=== PATIENT | female | born 1965 | race African-American/Black ===

== ENCOUNTER 2017-10-01 03:02 | Emergency (ER) | payer OTHER ==
[2017-10-01] MEDS: LORAZEPAM 2 MG INJ IV ×2 (05:31→06:21)
[2017-10-01] MEDS: LEVETIRACETAM 500 MG (PMX) 100 ML IVPB ×2 (05:31→06:49)
[2017-10-01] MEDS: HYDROCODONE/APAP (10/325) TAB PO (06:51)
== END 2017-10-01 10:03 | disposition home or self-care (01) ==
LOC: E/R 03:02
DX: G40.909 Epilepsy, unspecified, not intractable, without status epilepticus (principal); R40.2142 Coma scale, eyes open, spontaneous, at arrival to emergency department; R40.2252 Coma scale, best verbal response, oriented, at arrival to emergency department; R40.2362 Coma scale, best motor response, obeys commands, at arrival to emergency department
CPT/HCPCS: 96374; 96375; 96376; 99284-25

== ENCOUNTER 2017-12-10 18:01 | Inpatient (IN) | payer OTHER ==
[2017-12-10 19:05] LABS: ADD MAN DIFF? NO
[2017-12-10 19:11] LABS: WHITE BLOOD COUNT 10.5 10^3/ul (4.8-10.8)
[2017-12-10 19:11] LABS: BASOPHILS % 0.4 % (0.0-2.0); EOSINOPHILS # 0.4 10^3/ul (0.0-0.5); EOSINOPHILS % 3.4 % (0.0-7.0); HEMATOCRIT 37.1 % (37.0-47.0); HEMOGLOBIN 11.9 g/dl (12.0-16.0); LYMPHOCYTES # 4.4 10^3/ul (0.8-2.9); LYMPHOCYTES % 42.5 % (15.0-51.0); MEAN CORPUSCULAR HEMOGLOBIN 27.7 pg (29.0-33.0); MEAN CORPUSCULAR HGB CONC 32.1 g/dl (32.0-37.0); MEAN CORPUSCULAR VOLUME 86.5 fl (82.0-101.0); MEAN PLATELET VOLUME 11.8 fl (7.4-10.4); NEUTROPHIL # 4.5 10^3/ul (1.6-7.5); NEUTROPHILS % 43.4 % (39.0-77.0); PLATELET COUNT 282 10^3/UL (140-415); RED BLOOD COUNT 4.29 10^6/ul (4.20-5.40); RED CELL DISTRIBUTION WIDTH 14.6 % (11.5-14.5)
[2017-12-10 19:30] LABS: INR 0.87; PROTIME 11.9 Sec (11.9-14.9); PT RATIO 0.9
[2017-12-10 19:31] LABS: PARTIAL THROMBOPLASTIN TIME 27.7 Sec (25.0-35.0)
[2017-12-10] MEDS ORDERED: LORAZEPAM 2 MG INJ (19:31)
[2017-12-10 19:35] LABS: ALANINE AMINOTRANSFERASE 28 IU/L (13-69); ALBUMIN 4.1 g/dl (3.3-4.9); ALBUMIN/GLOBULIN RATIO 1.17; ALKALINE PHOSPHATASE 105 IU/L (42-121); ANION GAP 16 (8-16); ASPARTATE AMINO TRANSFERASE 22 IU/L (15-46); BLOOD UREA NITROGEN 10 mg/dl (7-20); CARBON DIOXIDE 27 mmol/L (21-31); CHLORIDE 106 mmol/L (97-110); CREATININE 0.93 mg/dl (0.44-1.00); GLUCOSE 104 mg/dl (70-220); POTASSIUM 3.6 mmol/L (3.5-5.1); SODIUM 145 mmol/L (135-144); TOTAL PROTEIN 7.6 g/dl (6.1-8.1)
[2017-12-10 19:44] LABS: ETHANOL < 10.0 mg/dl; PHENYTOIN (DILANTIN) < 3.0 ug/ml (10.0-20.0)
[2017-12-10] MEDS: LORAZEPAM 2 MG INJ IV (19:48)
[2017-12-10] MEDS: LEVETIRACETAM 1000 MG (PMX) 100 ML IVPB (19:48)
[2017-12-10 19:49] LABS: TROPONIN-I < 0.012 ng/ml (0.00-0.12)
[2017-12-10] MEDS: SOD CHLORIDE 0.9% 1,000 ML IV (19:49)
[2017-12-10] MEDS ORDERED: ONDANSETRON 4 MG INJ IV (22:30)
[2017-12-10] MEDS ORDERED: ACETAMINOPHEN 325 MG TAB PO (22:30)
[2017-12-11] MEDS: hydrALAzine 20 MG INJ IV (00:35)
[2017-12-11] MEDS: LORAZEPAM 2 MG INJ IV ×4 (00:36→20:22)
[2017-12-11] MEDS ORDERED: ONDANSETRON 4 MG INJ IV (01:30)
[2017-12-11] MEDS ORDERED: hydrALAzine 20 MG INJ IV (01:30)
[2017-12-11] MEDS ORDERED: MAGNESIUM HYDROXIDE 30ML CUP PO (01:30)
[2017-12-11] MEDS ORDERED: NACL 0.9% 3 ML SYG IV (01:30)
[2017-12-11] MEDS ORDERED: DOCUSATE SODIUM 100 MG CAP PO (01:30)
[2017-12-11] MEDS ORDERED: NA PHOSPHATE/BIPHOS 133 ML ENEMA PR (01:30)
[2017-12-11] MEDS ORDERED: HYDROCODONE/APAP (5/325) TAB PO (01:30)
[2017-12-11] MEDS ORDERED: NITROGLYCERIN (SL) 0.4 MG TAB SL (01:30)
[2017-12-11] MEDS: morphine 2 MG INJ IV (01:59)
[2017-12-11] MEDS: SOD CHLORIDE 0.45% 1,000 ML IV ×2 (02:00→14:51)
[2017-12-11 08:16] LABS: FREE T4 (FREE THYROXINE) 0.86 ng/dl (0.64-1.79)
[2017-12-11] MEDS: LEVETIRACETAM 1000 MG (PMX) 100 ML IVPB ×2 (09:17→20:22)
[2017-12-11] MEDS: HEPARIN 5,000 UNIT/0.5 ML VIAL SC ×2 (09:18→20:37)
[2017-12-12] MEDS: LORAZEPAM 2 MG INJ IV (01:03)
[2017-12-12] MEDS: SOD CHLORIDE 0.45% 1,000 ML IV ×2 (04:17→17:22)
[2017-12-12 07:36] LABS: ADD MAN DIFF? NO
[2017-12-12 07:39] LABS: BASOPHILS % 0.4 % (0.0-2.0); EOSINOPHILS # 0.1 10^3/ul (0.0-0.5); EOSINOPHILS % 0.5 % (0.0-7.0); HEMATOCRIT 37.3 % (37.0-47.0); HEMOGLOBIN 12.1 g/dl (12.0-16.0); LYMPHOCYTES % 26.8 % (15.0-51.0); MEAN CORPUSCULAR HEMOGLOBIN 27.5 pg (29.0-33.0); MEAN CORPUSCULAR HGB CONC 32.4 g/dl (32.0-37.0); MEAN CORPUSCULAR VOLUME 84.8 fl (82.0-101.0); MONOCYTE # 1.2 10^3/ul (0.3-0.9); MONOCYTES % 10.5 % (0.0-11.0); NEUTROPHIL # 6.8 10^3/ul (1.6-7.5); NEUTROPHILS % 61.5 % (39.0-77.0); PLATELET COUNT 280 10^3/UL (140-415); RED CELL DISTRIBUTION WIDTH 14.8 % (11.5-14.5)
[2017-12-12 08:01] LABS: ANION GAP 14 (8-16); BLOOD UREA NITROGEN 10 mg/dl (7-20); CALCIUM 9.2 mg/dl (8.4-10.2); CARBON DIOXIDE 30 mmol/L (21-31); CHLORIDE 101 mmol/L (97-110); CHOL/HDL RATIO 3.1 RATIO; CHOLESTEROL 175 mg/dl (100-200); CREATININE 0.86 mg/dl (0.44-1.00); GLUCOSE 119 mg/dl (70-220); HDL CHOLESTEROL 55 mg/dl (37-92); LDL CHOLESTEROL,CALCULATED 97 mg/dl; MAGNESIUM 1.9 mg/dl (1.7-2.5); PHOSPHORUS 2.9 mg/dl (2.5-4.9); SODIUM 141 mmol/L (135-144); TRIGLYCERIDES 117 mg/dl (0-149)
[2017-12-12 08:01] LABS: HEMOGLOBIN A1C 5.6 % (0-5.9)
[2017-12-12] MEDS: LEVETIRACETAM 1000 MG (PMX) 100 ML IVPB ×2 (08:21→20:11)
[2017-12-12 08:25] LABS: THYROID STIMULATING HORMONE 0.733 MIU/L (0.465-4.680)
[2017-12-12] MEDS: HEPARIN 5,000 UNIT/0.5 ML VIAL SC ×2 (08:38→20:18)
[2017-12-12] MEDS: AMLODIPINE 2.5 MG TAB PO (16:27)
[2017-12-13] MEDS: OXCARBAZEPINE 300 MG TAB PO ×3 (00:39→20:24)
[2017-12-13] MEDS: SOD CHLORIDE 0.45% 1,000 ML IV ×2 (06:47→20:02)
[2017-12-13] MEDS: AMLODIPINE 2.5 MG TAB PO (08:38)
[2017-12-13] MEDS: HEPARIN 5,000 UNIT/0.5 ML VIAL SC ×2 (08:41→20:26)
[2017-12-13] MEDS: LEVETIRACETAM IV 1,500 MG in SOD CHLORIDE 0.9% 100 ML IV ×2 (08:41→20:24)
[2017-12-13 09:33] LABS: ADD MAN DIFF? NO
[2017-12-13 09:39] LABS: WHITE BLOOD COUNT 10.8 10^3/ul (4.8-10.8)
[2017-12-13 09:39] LABS: BASOPHIL # 0.1 10^3/ul (0.0-0.1); BASOPHILS % 0.5 % (0.0-2.0); EOSINOPHILS # 0.1 10^3/ul (0.0-0.5); EOSINOPHILS % 1.3 % (0.0-7.0); HEMATOCRIT 41.1 % (37.0-47.0); HEMOGLOBIN 13.2 g/dl (12.0-16.0); LYMPHOCYTES # 3.2 10^3/ul (0.8-2.9); LYMPHOCYTES % 29.3 % (15.0-51.0); MEAN CORPUSCULAR HEMOGLOBIN 27.2 pg (29.0-33.0); MEAN CORPUSCULAR HGB CONC 32.1 g/dl (32.0-37.0); MEAN CORPUSCULAR VOLUME 84.7 fl (82.0-101.0); MEAN PLATELET VOLUME 11.1 fl (7.4-10.4); MONOCYTE # 1.1 10^3/ul (0.3-0.9); MONOCYTES % 10.5 % (0.0-11.0); NEUTROPHIL # 6.3 10^3/ul (1.6-7.5); PLATELET COUNT 294 10^3/UL (140-415); RED BLOOD COUNT 4.85 10^6/ul (4.20-5.40); RED CELL DISTRIBUTION WIDTH 14.6 % (11.5-14.5)
[2017-12-13 10:06] LABS: ANION GAP 16 (8-16); BLOOD UREA NITROGEN 9 mg/dl (7-20); CALCIUM 9.2 mg/dl (8.4-10.2); CARBON DIOXIDE 28 mmol/L (21-31); CHLORIDE 103 mmol/L (97-110); CREATININE 0.91 mg/dl (0.44-1.00); GLUCOSE 109 mg/dl (70-220); POTASSIUM 3.5 mmol/L (3.5-5.1); SODIUM 143 mmol/L (135-144)
[2017-12-14] MEDS: SOD CHLORIDE 0.45% 1,000 ML IV ×2 (01:15→09:22)
[2017-12-14 06:48] LABS: ADD MAN DIFF? NO
[2017-12-14 06:57] LABS: BASOPHILS % 0.4 % (0.0-2.0); EOSINOPHILS # 0.3 10^3/ul (0.0-0.5); EOSINOPHILS % 2.6 % (0.0-7.0); HEMATOCRIT 35.3 % (37.0-47.0); HEMOGLOBIN 11.4 g/dl (12.0-16.0); LYMPHOCYTES # 3.8 10^3/ul (0.8-2.9); LYMPHOCYTES % 34.6 % (15.0-51.0); MEAN CORPUSCULAR HEMOGLOBIN 27.4 pg (29.0-33.0); MEAN CORPUSCULAR HGB CONC 32.3 g/dl (32.0-37.0); MEAN CORPUSCULAR VOLUME 84.9 fl (82.0-101.0); MONOCYTE # 1.1 10^3/ul (0.3-0.9); MONOCYTES % 10.1 % (0.0-11.0); NEUTROPHIL # 5.7 10^3/ul (1.6-7.5); NEUTROPHILS % 51.8 % (39.0-77.0); PLATELET COUNT 258 10^3/UL (140-415); RED BLOOD COUNT 4.16 10^6/ul (4.20-5.40); RED CELL DISTRIBUTION WIDTH 14.6 % (11.5-14.5)
[2017-12-14 07:23] LABS: ANION GAP 14 (8-16); BLOOD UREA NITROGEN 11 mg/dl (7-20); CARBON DIOXIDE 30 mmol/L (21-31); CHLORIDE 105 mmol/L (97-110); GLUCOSE 99 mg/dl (70-220); POTASSIUM 4.1 mmol/L (3.5-5.1); SODIUM 145 mmol/L (135-144)
[2017-12-14] MEDS: OXCARBAZEPINE 300 MG TAB PO ×2 (09:16→20:47)
[2017-12-14] MEDS: AMLODIPINE 2.5 MG TAB PO (09:16)
[2017-12-14] MEDS: HEPARIN 5,000 UNIT/0.5 ML VIAL SC ×2 (09:23→20:49)
[2017-12-14] MEDS: LEVETIRACETAM IV 1,500 MG in SOD CHLORIDE 0.9% 100 ML IV ×2 (09:30→20:48)
[2017-12-14] MEDS: ALBUTEROL/IPRATROPIUM (NEB) 3 ML AMP HHN (17:04)
[2017-12-15] MEDS: ACETAMINOPHEN 325 MG TAB PO (05:52)
[2017-12-15 07:15] LABS: ADD MAN DIFF? NO
[2017-12-15 07:24] LABS: WHITE BLOOD COUNT 11.1 10^3/ul (4.8-10.8)
[2017-12-15 07:24] LABS: BASOPHIL # 0.1 10^3/ul (0.0-0.1); BASOPHILS % 0.5 % (0.0-2.0); EOSINOPHILS # 0.4 10^3/ul (0.0-0.5); EOSINOPHILS % 3.7 % (0.0-7.0); HEMATOCRIT 35.1 % (37.0-47.0); HEMOGLOBIN 11.3 g/dl (12.0-16.0); LYMPHOCYTES # 4.2 10^3/ul (0.8-2.9); LYMPHOCYTES % 37.9 % (15.0-51.0); MEAN CORPUSCULAR HEMOGLOBIN 27.6 pg (29.0-33.0); MEAN CORPUSCULAR HGB CONC 32.2 g/dl (32.0-37.0); MEAN CORPUSCULAR VOLUME 85.6 fl (82.0-101.0); MEAN PLATELET VOLUME 11.9 fl (7.4-10.4); MONOCYTES % 9.1 % (0.0-11.0); NEUTROPHIL # 5.4 10^3/ul (1.6-7.5); NEUTROPHILS % 48.5 % (39.0-77.0); PLATELET COUNT 238 10^3/UL (140-415); RED CELL DISTRIBUTION WIDTH 14.8 % (11.5-14.5)
[2017-12-15 07:46] LABS: ANION GAP 15 (8-16); BLOOD UREA NITROGEN 13 mg/dl (7-20); CALCIUM 8.9 mg/dl (8.4-10.2); CARBON DIOXIDE 29 mmol/L (21-31); CHLORIDE 105 mmol/L (97-110); CREATININE 1.02 mg/dl (0.44-1.00); GLUCOSE 103 mg/dl (70-220); POSITIVE DIFF @See below; POTASSIUM 4.2 mmol/L (3.5-5.1); SODIUM 145 mmol/L (135-144)
[2017-12-15] MEDS: OXCARBAZEPINE 300 MG TAB PO (08:19)
[2017-12-15] MEDS: AMLODIPINE 2.5 MG TAB PO (08:22)
[2017-12-15] MEDS: HEPARIN 5,000 UNIT/0.5 ML VIAL SC (08:25)
[2017-12-15] MEDS: LEVETIRACETAM IV 1,500 MG in SOD CHLORIDE 0.9% 100 ML IV (08:26)
== END 2017-12-15 17:00 | disposition home or self-care (01) | DRG 101 ==
LOC: E/R 18:01 → MS4 23:35
DX: G40.909 Epilepsy, unspecified, not intractable, without status epilepticus (principal); I10 Essential (primary) hypertension; G47.30 Sleep apnea, unspecified; Z91.14 Patient's other noncompliance with medication regimen; I16.0 Hypertensive urgency; E66.9 Obesity, unspecified; Z68.37 Body mass index [BMI] 37.0-37.9, adult
CPT/HCPCS: 36415; 70450; 70553; 80048; 80053; 80061; 80185; 80306; 83036; 83735; 84100; 84439; 84443; 84484; 85025; 85610; 85730; 92526; 92610; 94660; 94664; 95819; 96374; 96375; 97110; 97116; 97164; 97530; 99291-25

== ENCOUNTER 2018-01-22 14:12 | Emergency (ER) | payer OTHER ==
[2018-01-22 16:47] LABS: URINE PH (Dip) POC 5.5 (5.0-8.5)
[2018-01-22 16:47] LABS: URINE BLOOD (Dip) POC Trace-intact (NEGATIVE); URINE GLUCOSE (Dip) POC Negative (NEGATIVE); URINE KETONES (Dip) POC Negative (NEGATIVE); URINE LEUKOCYTE EST (Dip) POC 1+ (NEGATIVE); URINE NITRITE (Dip) POC Negative (NEGATIVE); URINE TOTAL PROTEIN POC Negative (NEGATIVE)
[2018-01-22] MEDS: KETOROLAC 30 MG INJ IM (16:51)
[2018-01-22] MEDS: MUPIROCIN 2% 22 GM OINT TOP (17:11)
[2018-01-22 17:42] LABS: ADD UMIC YES; UR ASCORBIC ACID NEGATIVE (NEGATIVE); UR BILIRUBIN (Dip) NEGATIVE (NEGATIVE); UR BLOOD (Dip) NEGATIVE (NEGATIVE); UR CLARITY SLIGHTLY CLOUDY (CLEAR); UR COLOR STRAW (YELLOW); UR GLUCOSE (Dip) NEGATIVE (NEGATIVE); UR KETONES (Dip) NEGATIVE (NEGATIVE); UR LEUKOCYTE ESTERASE (Dip) 1+ Leu/ul (NEGATIVE); UR NITRITE (Dip) NEGATIVE (NEGATIVE); UR RBC 1 /HPF (0-5); UR SPECIFIC GRAVITY (Dip) 1.012 (1.003-1.030); UR SQUAMOUS EPITHELIAL CELL FEW /HPF (FEW); UR TOTAL PROTEIN (Dip) NEGATIVE (NEGATIVE); UR UROBILINOGEN (Dip) NEGATIVE (NEGATIVE); UR WBC 7 /HPF (0-5)
== END 2018-01-22 18:13 | disposition home or self-care (01) ==
LOC: FTE 14:12
DX: L30.1 Dyshidrosis [pompholyx] (principal); I10 Essential (primary) hypertension
CPT/HCPCS: 72100; 81001; 81003; 96372; 99284-25

== ENCOUNTER 2018-03-31 10:37 | Emergency (ER) | payer OTHER ==
[2018-03-31] MEDS: LORAZEPAM 0.5 MG TAB PO (11:22)
== END 2018-03-31 12:46 | disposition home or self-care (01) ==
LOC: E/R 10:37
DX: G40.909 Epilepsy, unspecified, not intractable, without status epilepticus (principal); R40.2142 Coma scale, eyes open, spontaneous, at arrival to emergency department; R40.2252 Coma scale, best verbal response, oriented, at arrival to emergency department; R40.2362 Coma scale, best motor response, obeys commands, at arrival to emergency department; I10 Essential (primary) hypertension; F17.210 Nicotine dependence, cigarettes, uncomplicated
CPT/HCPCS: 99283; Z7502

== ENCOUNTER 2018-05-08 18:40 | Emergency (ER) | payer OTHER ==
[2018-05-08 19:11] LABS: ADD MAN DIFF? NO
[2018-05-08 19:16] LABS: BASOPHIL # 0.1 10^3/ul (0.0-0.1); BASOPHILS % 0.5 % (0.0-2.0); EOSINOPHILS # 0.3 10^3/ul (0.0-0.5); EOSINOPHILS % 2.7 % (0.0-7.0); HEMATOCRIT 36.9 % (37.0-47.0); HEMOGLOBIN 12.2 g/dl (12.0-16.0); LYMPHOCYTES # 2.9 10^3/ul (0.8-2.9); LYMPHOCYTES % 29.1 % (15.0-51.0); MEAN CORPUSCULAR HEMOGLOBIN 27.4 pg (29.0-33.0); MEAN CORPUSCULAR HGB CONC 33.1 g/dl (32.0-37.0); MEAN CORPUSCULAR VOLUME 82.7 fl (82.0-101.0); MEAN PLATELET VOLUME 11.4 fl (7.4-10.4); MONOCYTE # 1.2 10^3/ul (0.3-0.9); MONOCYTES % 11.9 % (0.0-11.0); NEUTROPHIL # 5.6 10^3/ul (1.6-7.5); NEUTROPHILS % 55.5 % (39.0-77.0); PLATELET COUNT 271 10^3/UL (140-415); RED BLOOD COUNT 4.46 10^6/ul (4.20-5.40); RED CELL DISTRIBUTION WIDTH 15.3 % (11.5-14.5)
[2018-05-08 19:16] LABS: WHITE BLOOD COUNT 10.1 10^3/ul (4.8-10.8)
[2018-05-08 19:33] LABS: ANION GAP 12 (8-16); BLOOD UREA NITROGEN 17 mg/dl (7-20); CALCIUM 9.3 mg/dl (8.4-10.2); CARBON DIOXIDE 30 mmol/L (21-31); CHLORIDE 101 mmol/L (97-110); CREATININE 0.84 mg/dl (0.44-1.00); GLUCOSE 98 mg/dl (70-220); POTASSIUM 3.6 mmol/L (3.5-5.1); SODIUM 139 mmol/L (135-144)
[2018-05-08] MEDS: LEVETIRACETAM 1000 MG (PMX) 100 ML IVPB (19:38)
[2018-05-08] MEDS: SOD CHLORIDE 0.9% 1,000 ML IV (19:38)
== END 2018-05-08 20:41 | disposition home or self-care (01) ==
LOC: E/R 20:41
DX: G40.909 Epilepsy, unspecified, not intractable, without status epilepticus (principal); R40.2142 Coma scale, eyes open, spontaneous, at arrival to emergency department; R40.2242 Coma scale, best verbal response, confused conversation, at arrival to emergency department; R40.2362 Coma scale, best motor response, obeys commands, at arrival to emergency department; I10 Essential (primary) hypertension; F17.210 Nicotine dependence, cigarettes, uncomplicated
CPT/HCPCS: 36415; 80048; 82962; 85025; 96374; 99284-25

== ENCOUNTER 2018-07-15 11:19 | Emergency (ER) | payer OTHER | END 2018-07-15 13:05 | disposition home or self-care (01) | LOC: E/R 11:19 | DX: R56.9 Unspecified convulsions (principal); R40.2252 Coma scale, best verbal response, oriented, at arrival to emergency department; R40.2362 Coma scale, best motor response, obeys commands, at arrival to emergency department; R40.2142 Coma scale, eyes open, spontaneous, at arrival to emergency department; I10 Essential (primary) hypertension; Z87.891 Personal history of nicotine dependence | CPT/HCPCS: 99282; Z7502 ==

== ENCOUNTER 2019-02-01 12:47 | Observation (INO) | payer OTHER ==
[2019-02-01 13:26] LABS: ADD MAN DIFF? NO
[2019-02-01 13:32] LABS: WHITE BLOOD COUNT 7.2 10^3/ul (4.8-10.8)
[2019-02-01 13:32] LABS: BASOPHILS % 0.6 % (0.0-2.0); EOSINOPHILS % 0.6 % (0.0-7.0); HEMATOCRIT 36.1 % (37.0-47.0); HEMOGLOBIN 11.6 g/dl (12.0-16.0); LYMPHOCYTES # 1.2 10^3/ul (0.8-2.9); LYMPHOCYTES % 16.2 % (15.0-51.0); MEAN CORPUSCULAR HEMOGLOBIN 27.5 pg (29.0-33.0); MEAN CORPUSCULAR HGB CONC 32.1 g/dl (32.0-37.0); MEAN CORPUSCULAR VOLUME 85.5 fl (82.0-101.0); MONOCYTE # 0.4 10^3/ul (0.3-0.9); MONOCYTES % 5.4 % (0.0-11.0); NEUTROPHIL # 5.5 10^3/ul (1.6-7.5); NEUTROPHILS % 76.9 % (39.0-77.0); PLATELET COUNT 263 10^3/UL (140-415); RED BLOOD COUNT 4.22 10^6/ul (4.20-5.40); RED CELL DISTRIBUTION WIDTH 14.4 % (11.5-14.5)
[2019-02-01 13:51] LABS: INR 0.89; PROTIME 12.1 Sec (11.9-14.9); PT RATIO 0.9
[2019-02-01 13:52] LABS: PARTIAL THROMBOPLASTIN TIME 27.5 Sec (23.0-35.0)
[2019-02-01 13:54] LABS: ALANINE AMINOTRANSFERASE 16 IU/L (13-69); ALBUMIN 4.3 g/dl (3.3-4.9); ALBUMIN/GLOBULIN RATIO 1.04; ALKALINE PHOSPHATASE 91 IU/L (42-121); ANION GAP 11 (5-13); ASPARTATE AMINO TRANSFERASE 19 IU/L (15-46); BILIRUBIN,INDIRECT 0.3 mg/dl (0-1.1); BILIRUBIN,TOTAL 0.3 mg/dl (0.2-1.3); BLOOD UREA NITROGEN 15 mg/dl (7-20); CALCIUM 9.5 mg/dl (8.4-10.2); CARBON DIOXIDE 29 mmol/L (21-31); CHLORIDE 103 mmol/L (97-110); CREATININE 1.05 mg/dl (0.44-1.00); Estimated GFR > 60 mL/min (>60); GLUCOSE 115 mg/dl (70-220); PHENYTOIN (DILANTIN) < 3.0 ug/ml (10.0-20.0); POTASSIUM 4.1 mmol/L (3.5-5.1); SODIUM 143 mmol/L (135-144); TOTAL PROTEIN 8.4 g/dl (6.1-8.1)
[2019-02-01] MEDS: SOD CHLORIDE 0.9% 1,000 ML IV ×2 (13:55→17:15)
[2019-02-01 14:04] LABS: TROPONIN-I < 0.012 ng/ml (0.000-0.120)
[2019-02-01] MEDS: LEVETIRACETAM 1000 MG (PMX) 100 ML IVPB ×2 (14:12→20:07)
[2019-02-01] MEDS: ONDANSETRON 4 MG INJ IV (15:09)
[2019-02-01] MEDS: morphine 4 MG/ML VIAL IV (15:09)
[2019-02-01] MEDS ORDERED: ONDANSETRON 4 MG INJ IV ×2 (15:30→16:30)
[2019-02-01] MEDS: ACETAMINOPHEN 325 MG TAB PO (16:21)
[2019-02-01] MEDS ORDERED: ACETAMINOPHEN 325 MG TAB PO (16:30)
[2019-02-01] MEDS ORDERED: NACL 0.9% 3 ML SYG IV (16:30)
[2019-02-01] MEDS ORDERED: ACETAMINOPHEN 650 MG SUPP PR (16:30)
[2019-02-01] MEDS ORDERED: morphine 2 MG INJ IV (16:30)
[2019-02-01] MEDS ORDERED: HYDROCODONE/APAP (5/325) TAB PO (16:30)
[2019-02-01] MEDS ORDERED: MAGNESIUM HYDROXIDE 30ML CUP PO (16:30)
[2019-02-01] MEDS: HYDROCHLOROTHIAZIDE 25 MG TAB PO (17:15)
[2019-02-01] MEDS: AMLODIPINE 10 MG TAB PO (17:15)
[2019-02-01] MEDS ORDERED: LORAZEPAM 2 MG INJ IV (18:00)
[2019-02-01] MEDS: FAMOTIDINE 20 MG TAB PO (20:06)
[2019-02-01 20:07] LABS: ADD UMIC NO; UR ASCORBIC ACID NEGATIVE (NEGATIVE); UR BILIRUBIN (Dip) NEGATIVE (NEGATIVE); UR BLOOD (Dip) NEGATIVE (NEGATIVE); UR CLARITY CLEAR (CLEAR); UR COLOR STRAW (YELLOW); UR GLUCOSE (Dip) NEGATIVE (NEGATIVE); UR KETONES (Dip) NEGATIVE (NEGATIVE); UR LEUKOCYTE ESTERASE (Dip) NEGATIVE Leu/ul (NEGATIVE); UR NITRITE (Dip) NEGATIVE (NEGATIVE); UR SPECIFIC GRAVITY (Dip) 1.014 (1.003-1.030); UR TOTAL PROTEIN (Dip) NEGATIVE (NEGATIVE); UR UROBILINOGEN (Dip) NEGATIVE (NEGATIVE)
[2019-02-01] MEDS: HYDROCODONE/APAP (5/325) TAB PO (20:07)
[2019-02-01] MEDS ORDERED: LEVETIRACETAM 1000 MG (PMX) 100 ML IVPB (21:00)
[2019-02-02 06:04] LABS: ADD MAN DIFF? NO
[2019-02-02 06:10] LABS: WHITE BLOOD COUNT 7.7 10^3/ul (4.8-10.8)
[2019-02-02 06:10] LABS: BASOPHIL # 0.1 10^3/ul (0.0-0.1); BASOPHILS % 0.7 % (0.0-2.0); EOSINOPHILS # 0.2 10^3/ul (0.0-0.5); EOSINOPHILS % 2.6 % (0.0-7.0); HEMATOCRIT 32.4 % (37.0-47.0); HEMOGLOBIN 10.5 g/dl (12.0-16.0); LYMPHOCYTES # 2.2 10^3/ul (0.8-2.9); LYMPHOCYTES % 28.1 % (15.0-51.0); MEAN CORPUSCULAR HEMOGLOBIN 27.7 pg (29.0-33.0); MEAN CORPUSCULAR HGB CONC 32.4 g/dl (32.0-37.0); MEAN CORPUSCULAR VOLUME 85.5 fl (82.0-101.0); MEAN PLATELET VOLUME 10.9 fl (7.4-10.4); MONOCYTE # 0.7 10^3/ul (0.3-0.9); MONOCYTES % 8.5 % (0.0-11.0); NEUTROPHIL # 4.6 10^3/ul (1.6-7.5); NEUTROPHILS % 59.7 % (39.0-77.0); PLATELET COUNT 244 10^3/UL (140-415); RED BLOOD COUNT 3.79 10^6/ul (4.20-5.40); RED CELL DISTRIBUTION WIDTH 14.3 % (11.5-14.5)
[2019-02-02] MEDS: SOD CHLORIDE 0.9% 1,000 ML IV ×2 (06:30→07:03)
[2019-02-02 06:44] LABS: FREE THYROXINE INDEX (Calc) 2.41 ug/ml (0.65-3.89); T3 UPTAKE 30.5 % (23.5-40.5); T4 (THYROXINE) 7.9 ug/dl (5.5-11.0)
[2019-02-02 06:53] LABS: ALANINE AMINOTRANSFERASE 12 IU/L (13-69); ALBUMIN 3.8 g/dl (3.3-4.9); ALBUMIN/GLOBULIN RATIO 1.31; ALKALINE PHOSPHATASE 72 IU/L (42-121); ANION GAP 5 (5-13); ASPARTATE AMINO TRANSFERASE 15 IU/L (15-46); BILIRUBIN,INDIRECT 0.4 mg/dl (0-1.1); BILIRUBIN,TOTAL 0.4 mg/dl (0.2-1.3); BLOOD UREA NITROGEN 11 mg/dl (7-20); CALCIUM 9.2 mg/dl (8.4-10.2); CARBON DIOXIDE 29 mmol/L (21-31); CHLORIDE 106 mmol/L (97-110); CHOL/HDL RATIO 4.3 RATIO; CHOLESTEROL 169 mg/dl (100-200); CREATININE 0.84 mg/dl (0.44-1.00); Estimated GFR > 60 mL/min (>60); GLUCOSE 108 mg/dl (70-220); HDL CHOLESTEROL 39 mg/dl (37-92); LDL CHOLESTEROL,CALCULATED 109 mg/dl; MAGNESIUM 1.9 mg/dl (1.7-2.5); PHOSPHORUS 3.5 mg/dl (2.5-4.9); POTASSIUM 3.6 mmol/L (3.5-5.1); SODIUM 140 mmol/L (135-144); TOTAL PROTEIN 6.7 g/dl (6.1-8.1); TRIGLYCERIDES 105 mg/dl (0-149)
[2019-02-02 06:57] LABS: THYROID STIMULATING HORMONE 0.853 MIU/L (0.465-4.680)
[2019-02-02 08:38] LABS: HEMOGLOBIN A1C 5.5 % (0-5.9)
[2019-02-02] MEDS: FAMOTIDINE 20 MG TAB PO (08:39)
[2019-02-02] MEDS: LEVETIRACETAM 1000 MG (PMX) 100 ML IVPB (08:39)
[2019-02-02] MEDS: AMLODIPINE 10 MG TAB PO (08:39)
[2019-02-02] MEDS: HYDROCHLOROTHIAZIDE 25 MG TAB PO (11:00)
== END 2019-02-02 11:50 | disposition home or self-care (01) ==
LOC: E/R 12:47 → 2NE 15:28
DX: G40.909 Epilepsy, unspecified, not intractable, without status epilepticus (principal); I10 Essential (primary) hypertension; E66.9 Obesity, unspecified; Z68.37 Body mass index [BMI] 37.0-37.9, adult
CPT/HCPCS: 36415; 70450; 71045; 80053; 80061; 80185; 81003; 81025; 83036; 83735; 84100; 84436; 84443; 84479; 84484; 85025; 85610; 85730; 93005; 96374; 99217; 99285-25